=== PATIENT | female | born 1995 | race Caucasian/White ===

== ENCOUNTER 2018-03-03 14:09 | Inpatient (IN) ==
[2018-03-03] MEDS ORDERED: Sodium Chloride 0.9% 2 ML Flush PRN IV.FLUSH (16:49)
[2018-03-03] MEDS: Ketorolac Inj 30 MG/ML (IVP) Vial IV.PUSH PRN ×2 (17:19→23:07)
--- NOTE | 2018-03-03 19:08 | XR ---
EXAM DATE: 03/03/2018 7:00 PM EST AGE/SEX: 22 years / Female INDICATIONS: Follow up Post Op fracture. CLINICAL DATA: This is the patient's initial encounter. Patient reports that signs and symptoms have been present for 1 day and indicates a pain score of Nonresponsive. MEDICAL/SURGICAL HISTORY: None. None. COMPARISON: [facility] – [place], PELVIS AP 1V, 02/13/2018. [facility] [place], CT ABDOMEN & PELVIS W CONTRAST, 02/13/2018. . FINDINGS: The patient is in an external fixator. 2 screws are seen through the sacrum. The more superior screw extends through the right ilium and upper sacrum through the right sacroiliac joint. The more inferio r screw extends through the right sacroiliac joint, the mid sacrum and then the left sacroiliac joint on this AP projection. There is fracturing of the medial aspect of the left superior and inferior pu bic rami. There is a fre seen through the right femoral shaft. The hip joints appear aligned. CONCLUSION: Good placement of surgical hardware on this AP projection. Electronically signed by: Jordan Jarvis MD 03/03/2018 7:06 PM EST
--- NOTE | 2018-03-03 19:09 | XR ---
EXAM DATE: 03/03/2018 6:57 PM EST AGE/SEX: 22 years / Female INDICATIONS: Follow up fractures Post OP. CLINICAL DATA: This is the patient's initial encounter. Patient reports that signs and symptoms have been present for 1 day and indicates a pain score of 0/10. MEDICAL/SURGICAL HISTORY: None. None. COMPARISON: [facility] – [place], FEMUR RIGHT 1V, 02/13/2018. . FINDINGS: There is an intramedullary fer secured by 2 screws proximally and distally successfully reducing a mi d femoral shaft fracture. The hardware is well placed. The right hip and right knee joints are aligne d. Surgical hardware seen in the pelvis. CONCLUSION: Successful ORIF. Electronically signed by: Jordan Jarvis MD 03/03/2018 7:08 PM EST
--- NOTE | 2018-03-03 19:12 | P.CONOP ---
[facility] Orthopedics Consult Note - [facility] Consult date: 03/03/18 Chief complaint: Fracture Narrative: 22-year-old female who came in to [facility] as a trauma level 1 about 3 weeks ago. She was found to have multiple extremity fractures including pelvic fractures and a right humerus fracture. There was significant concern the patient had a dissecting ascending aortic aneurysm. The patient was transferred emergently to [facility] for possible surgical management of this. The patient tells me that when she arrived there they did not need to do surgery on her aorta. However she did have multiple orthopedic surgeries performed. She says that there was a fer placed into the right arm, there was fixation placed into her pelvis, and she said there is a fer placed into her right leg. She states that the fixation in the pelvis was going to require removal of part of this hardware in about a month or so. She states that she was allowed to do toe-touch weightbearing on the right lower extremity and weight-bear as tolerated on the left lower extremity and have no weightbearing to the right upper extremity. She denies any numbness or tingling of the extremities. She says that the surgeries went well and the swelling is come down and she did not have any infections. She was transferred back to [facility] for rehabilitation closer to home. She does complain of a little bit of left-sided rib pain. She says she was diagnosed with multiple rib fractures but she has no dyspnea, or shortness of breath or difficulty breathing. Review of Systems All other systems reviewed negative except as stated in [facility] PMFSH - History History Provided By: Patient, Ekg Tech / EMT - Medical / Surgical Hx Neg / Unobtainable Medical Problems Denied: Yes - Social History I have reviewed the patient's Social History: Yes Medications and Allergies Active Medications: Active Medications Enalaprilat (Vasotec Inj) 1.25 mg IV.PUSH Q8H PRN PRN Reason: SEE LABEL COMMENTS Enoxaparin Sodium (Lovenox Inj) 30 mg SQ Q12HR LATASHA Ketorolac Tromethamine (Toradol Inj) 15 mg IV.PUSH Q6H PRN PRN Reason: Break through pain Stop: 03/08/18 16:30 Last Admin: 03/03/18 17:19 Dose: 15 mg Oxycodone HCl (Roxicodone) 10 mg PO Q4H PRN PRN Reason: Pain > 3 Last Admin: 03/03/18 17:20 Dose: 10 mg Sodium Chloride (Ns Flush) 2 ml IV.FLUSH BID LATASHA Sodium Chloride (Ns Flush) 2 ml IV.FLUSH PRN PRN PRN Reason: FLUSH AFTER USING IV ACCESS Allergies Allergy/AdvReac Type Severity Reaction Status Date / Time No Allergy Information Allergy Unverified 02/13/18 01:16 Available Home Medications Medication Instructions Recorded Confirmed Type acetaminophen 650 mg PO Q4H PRN 03/03/18 03/03/18 History aspirin 1 tab PO DAILY 03/03/18 03/03/18 History cyclobenzaprine 10 mg PO TID 03/03/18 03/03/18 History diazepam 5 mg PO TID-QID PRN 03/03/18 03/03/18 History enoxaparin 30 mg SUBCUT Q12H 03/03/18 03/03/18 History gabapentin 600 mg PO TID 03/03/18 03/03/18 History hydromorphone [Dilaudid] 4 mg PO Q4-6H PRN 03/03/18 03/03/18 History ipratropium-albuterol 3 ml INHALATION Q4HR PRN 03/03/18 03/03/18 History magnesium L-lactate [Magtab] 168 mg PO DAILY 03/03/18 03/03/18 History metoprolol tartrate 25 mg PO BID 03/03/18 03/03/18 History polyethylene glycol 3350 [Miralax] 17 g PO DAILY 03/03/18 03/03/18 History sennosides-docusate sodium 1 tab PO BID 03/03/18 03/03/18 History [Senna-S] Exam Vital signs: Vital Signs 03/03/18 16:00 Temperature 98.8 F Pulse Rate 112 H Respiratory Rate 16 Blood Pressure 120/70 Pulse Oximetry 100 Intake & Output 03/03/18 03/03/18 03/04/18 06:59 18:59 06:59 Weight 74.1 kg Other: Date of Last Bowel Movement 03/03/18 # Bowel Movements 1 Weight On Admission 74.1 kg Narrative: GENERAL: The patient is awake, alert and oriented x3. The patient is no significant distress. PSYCHIATRIC: Normal affect, insight, and judgment. HEENT: Head is atraumatic. Oropharynx is moist. Extraocular muscles are intact. NECK: Non-tender and supple. LUNGS: No audible wheezing. He has normal inspiratory effort with no signs of dyspnea. She has minimal tenderness about the left chest wall there is some prominence about the ribs I do not appreciate any significant crepitus HEART: Regular rate and rhythm. ABDOMEN: Soft, nontender, and nondistended. BACK: No CVA tenderness. EXTREMITIES/SKIN/NEURO/VASCULAR: I evaluated wounds are all dressed about the right shoulder multiple wounds about the pelvis and also about the right leg. These all had dressings that have Tegaderm on top which are essentially a "no touch dressing" I do not see any erythema surrounding any of these and there is no significant drainage. The shoulder had a little bit of drainage which was dried, but this was fairly small. The examination of the right upper arm, right lower leg and pelvis shows that the compartments are all soft without a significant amount of swelling and only mild swelling about the thigh was noted. The right upper extremity has good active range of motion of the hand. On the bilateral lower extremities she can actively move the toes well. She has 2+ dorsalis pedis pulse bilaterally and she has a 2+ radial pulse on the right arm. She had normal sensation about the extremities. Results - Diagnostic results Imaging: The x-rays are not read by the radiologist yet. The right shoulder x-ray shows a highly comminuted proximal humerus fracture which has an ORIF with plates and screws overall good position. The right femur has a retrograde femoral fer with essentially a transverse fracture which is in anatomic position. The pelvis shows evidence of a fixator anteriorly in good position with significant comminution around the pubic rami on the left side and then there are transsacral/iliac screws on the right side. Overall alignment is appropriate for the pelvis. Assessment and Plan - Assessment and Plan 22-year-old female with multiple complex orthopedic injuries status post fixation at [facility]. 1right proximal humerus fracture status post ORIF. 2multiple pelvic fractures including right sacroiliac joint fixation along with anterior fixation. 3-right femur retrograde nailing of transverse femur fracture. This point patient seems to be stable as far as her fixation is concerned. She will continue with the prescribed precautions per the patient telling me what [facility] had told her. Specifically she will be toe-touch weightbearing on the right lower extremity. She can start active range of motion of the right knee. Given the significant comminution of the right shoulder would recommend avoiding significant motion of the right shoulder and she should be nonweightbearing to the right upper extremity. The patient can use her left leg for transfers. She is weightbearing as tolerated on the left lower extremity. The patient states that she needs to return back to [place] in a month to have the anterior fixator removed. - Attending Attestation Attending Attestation: A mid level provider in my office, nurse practitioner or PA, may see this patient on a follow up basis and continue to implement the plan including: starting or adjusting medications, injections of muscle, tendons, bursa or joints, cast application, orthotic or brace application, physical therapy, further radiographic studies including X-ray, MRI, CT, ultrasound or bone scan , vascular studies, neurological studies, or other specialist consultations, and proceeding with surgical management as appropriate.
--- NOTE | 2018-03-03 19:13 | XR ---
EXAM DATE: 03/03/2018 7:03 PM EST AGE/SEX: 22 years / Female INDICATIONS: Post Op follow up fracture. CLINICAL DATA: This is the patient's initial encounter. Patient reports that signs and symptoms have been present for 1 day and indicates a pain score of Nonresponsive. MEDICAL/SURGICAL HISTORY: None. None. [place] [facility] [place]. . FINDINGS: There is a comminuted humerus fracture status post plate and screw fixation. No dislocation. Fracture fragments are seen around the right humeral neck. CONCLUSION: Comminuted fracture proximal right humerus with plate and screw fixation. Electronically signed by: Josemanuel Ellington MD 03/03/2018 7:11 PM EST
[2018-03-03 19:50] LABS: Alkaline Phosphatase 294 U/L (45-117); Total Protein 6.9 g/dL (6.4-8.2)
[2018-03-03 21:11] LABS: Albumin 2.4 g/dL (3.4-5.0); Anion Gap 6 meq/L (5-15); Aspartate Aminotransferase 30 U/L (15-37); Blood Urea Nitrogen 12 mg/dL (7-18); Calcium 8.6 mg/dL (8.5-10.1); Carbon Dioxide 30.4 meq/L (21.0-32.0); Chloride 103 meq/L (98-107); Glomerular Filtration Rate Greater Than 89 mL/min (>89); Glucose,Random 81 mg/dL (74-106)
[2018-03-03 21:12] LABS: Alanine Aminotransferase 33 U/L (10-53); Sodium 139 meq/L (136-145)
[2018-03-03] MEDS: Enoxaparin Inj 30 MG/0.3 ML Syringe SQ SCH (21:33)
[2018-03-03] MEDS: Sodium Chloride 0.9% 2 ML Flush BID IV.FLUSH SCH (21:34)
[2018-03-03 23:19] LABS: Baso % (Auto) 0.3 % (0.0-2.0); Eos # (Auto) 0.1 th/mm3 (0.0-0.4); Eos % (Auto) 1.5 % (0.0-4.0); Hematocrit 27.3 % (35.0-46.0); Hemoglobin 9.5 gm/dL (11.6-15.3); Lymph % (Auto) 28.2 % (9.0-44.0); Mean Corpuscular HGB Conc 34.6 % (32.0-36.0); Mean Corpuscular Hemoglobin 32.6 pg (27.0-34.0); Mean Corpuscular Volume 94.3 fL (80.0-100.0); Mean Platelet Volume 7.4 fL (7.0-11.0); Mono # (Auto) 0.5 th/mm3 (0.0-0.9); Mono % (Auto) 6.7 % (0.0-8.0); Neut # (Auto) 4.5 th/mm3 (1.8-7.7); Neut % (Auto) 63.3 % (16.0-70.0); Platelet Count 454 th/mm3 (150-450); Red Cell Distribution Width 14.8 % (11.6-17.2); White Blood Count 7.1 th/mm3 (4.0-11.0)
--- NOTE | 2018-03-04 03:44 | XR ---
EXAM DATE: 03/04/2018 3:37 AM EST AGE/SEX: 22 years / Female INDICATIONS: EVARISTO. CLINICAL DATA: This is the patient's subsequent encounter. Patient reports that signs and symptoms h ave been present for 2 days and indicates a pain score of 4/10. MEDICAL/SURGICAL HISTORY: None. . ORIF Right humerus. COMPARISON: [facility] [place]ST 1V SINGLE AP, 02/13/2018. . FINDINGS: Single AP view of the chest. The lungs are clear. Cardiomediastinal silhouette within nor mal limits. No evidence of pleural effusion or pneumothorax. CONCLUSION: No acute cardiopulmonary disease identified. Electronically signed by: Stas Bassett MD 03/04/2018 3:43 AM EST
[2018-03-04] MEDS: Ketorolac Inj 30 MG/ML (IVP) Vial IV.PUSH PRN ×2 (05:13→20:31)
[2018-03-04] MEDS ORDERED: diazePAM 5 MG Tablet PO PRN (06:43)
[2018-03-04] MEDS ORDERED: Acetaminophen 325 MG Tablet PO PRN (06:43)
[2018-03-04] MEDS ORDERED: MAGNESIUM PO SCH (09:00)
[2018-03-04] MEDS ORDERED: LACTATE PO SCH (09:00)
[2018-03-04] MEDS: Metoprolol Tartrate 25 MG Tablet PO SCH ×2 (09:57→20:32)
[2018-03-04] MEDS: Gabapentin 300 MG Capsule PO SCH ×3 (09:57→17:41)
[2018-03-04] MEDS: Enoxaparin Inj 30 MG/0.3 ML Syringe SQ SCH ×2 (09:59→20:33)
[2018-03-04] MEDS: Sodium Chloride 0.9% 2 ML Flush BID IV.FLUSH SCH ×2 (10:03→20:33)
[2018-03-04] MEDS: Senna/Docusate Sodium 8.6/50 MG Tablet PO SCH ×2 (10:03→20:33)
[2018-03-04] MEDS: Polyethylene Glycol 3350 17 GM Packet PO SCH (10:03)
--- NOTE | 2018-03-04 14:14 | P.PN ---
Subjective Interval history: OOB in chair, complains of pelvic pain Reports she was transferring to chair well with PT at [facility] Physical Exam Vital signs: Vital Signs 03/03/18 16:00 03/03/18 20:00 03/04/18 00:00 Temperature 98.8 F 97.9 F 98.3 F Pulse Rate 112 H 101 H 114 H Respiratory Rate 16 17 17 Blood Pressure 120/70 119/75 126/71 Pulse Oximetry 100 97 96 03/04/18 01:30 03/04/18 08:00 03/04/18 12:00 Temperature 97.7 F 97.7 F Pulse Rate 89 93 H Respiratory Rate 16 16 18 Blood Pressure 125/79 117/79 Pulse Oximetry 99 98 Intake & Output 03/03/18 03/04/18 03/04/18 18:59 06:59 18:59 Intake Total 480 / 480 Balance 480 / 480 Weight 74.1 kg 74.1 kg Intake: Oral 480 / 480 Other: # Voids 2 Date of Last Bowel Movement 03/03/18 03/03/18 # Bowel Movements 1 1 Weight On Admission 74.1 kg Narrative: GENERAL: 22-year-old well-nourished, well developed female OOB in chair. SKIN: Warm and dry.. CARDIOVASCULAR: Regular rate and rhythm. RESPIRATORY: No accessory muscle use. Lungs clear to auscultation bilaterally. Right lateral rib pain with palpation. GASTROINTESTINAL: Abdomen soft, non-tender, nondistended. + BS. MUSCULOSKELETAL: Extremities without cyanosis, or edema. RUE Jorje wrap in place. Right thigh dry dressing intact. MAEW, + perfused NEUROLOGICAL: Awake and alert. Normal speech. Results - Labs CBC & Chem 7: 03/03/18 22:53 03/03/18 20:34 Laboratory Results - last 24 hr 03/03/18 03/03/18 20:34 22:53 WBC 7.1 RBC 2.90 L Hgb 9.5 L Hct 27.3 L MCV 94.3 MCH 32.6 MCHC 34.6 RDW 14.8 Plt Count 454 H D MPV 7.4 Neut % (Auto) 63.3 Lymph % (Auto) 28.2 Lyman % (Auto) 6.7 Eos % (Auto) 1.5 Baso % (Auto) 0.3 Neut # (Auto) 4.5 Lymph # (Auto) 2.0 Lyman # (Auto) 0.5 Eos # (Auto) 0.1 Baso # (Auto) 0.0 WBC Differential . Differential Comment Auto diff final Sodium 139 Potassium 4.0 Chloride 103 Carbon Dioxide 30.4 Anion Gap 6 BUN 12 Creatinine 0.53 Estimated GFR Greater than 89 Random Glucose 81 Calcium 8.6 Total Bilirubin 0.4 AST 30 ALT 33 Alkaline Phosphatase 294 H Total Protein 6.9 Albumin 2.4 L - Imaging Impressions Pelvis X-Ray 03/03/18 17:35 CONCLUSION: Good placement of surgical hardware on this AP projection. Femur X-Ray 03/03/18 17:36 CONCLUSION: Successful ORIF. Humerus X-Ray 03/03/18 17:36 CONCLUSION: Comminuted fracture proximal right humerus with plate and screw fixation. Chest X-Ray 03/04/18 06:00 CONCLUSION: No acute cardiopulmonary disease identified. Assessment and Plan - Plan [place]: Jumped from a 7th floor window landing on the grass. Had aortic arch tear and transferred to [facility] for treatment. INJURIES: Grade I aortic arch tear (non-op) RIGHT rib fxs (11, 12) RIGHT EVARISTO RIGHT pulmonary contusion RIGHT humerus fx RIGHT femur fx RIGHT pelvic fx extending through the sacrum Grade III liver lac RIGHT renal contusion Grade I aortic arch tear Supportive care Transferred to [facility] for continued management, decided on nonoperative management ASA 81 mg daily RIGHT rib fxs, RIGHT EVARISTO, RIGHT pulmonary contusion Supportive care Pulmonary toileting CXR shows no acute disease Pain control Bowel regimen OOB- PT and OT ordered RIGHT humerus fx, RIGHT femur fx, RIGHT pelvic fx extending through the sacrum Orthopedics consulted 02/16: IMN right femur fracture ([facility]) 02/20:Right sacroiliac joint fixation with anterior fixation ([facility]) 02/26: ORIF right proximal humerus fracture ([facility]) Pain control Bowel regimen OOB- PT and OT ordered NWB RUE, TTWB RLE, WBAT LLE for transfers only Lovenox 30 twice daily Rehab placement Grade III liver lac, RIGHT renal contusion Supportive care Trend hemoglobin Follow LFTs Monitor UOP ?Suicide attempt Psychiatry consulted Plan of care discussed with patient at bedside. Collaborating Trauma surgeon agrees with plan. Case management consulted to assist with discharge planning. - Attending Attestation multitrauma returned from [facility] overall stable will review chart consult [facility]
[2018-03-05] MEDS: Ketorolac Inj 30 MG/ML (IVP) Vial IV.PUSH PRN ×3 (02:05→17:20)
[2018-03-05] MEDS: Metoprolol Tartrate 25 MG Tablet PO SCH ×2 (09:16→21:29)
[2018-03-05] MEDS: Senna/Docusate Sodium 8.6/50 MG Tablet PO SCH ×2 (09:16→21:29)
[2018-03-05] MEDS: Enoxaparin Inj 30 MG/0.3 ML Syringe SQ SCH ×2 (09:16→21:31)
[2018-03-05] MEDS: Polyethylene Glycol 3350 17 GM Packet PO SCH (09:16)
[2018-03-05] MEDS: Gabapentin 300 MG Capsule PO SCH ×3 (09:17→17:21)
[2018-03-05] MEDS: Sodium Chloride 0.9% 2 ML Flush BID IV.FLUSH SCH ×2 (09:28→21:31)
--- NOTE | 2018-03-05 10:54 | P.PN ---
Subjective Interval history: Trauma PTD: 18. HD: 2 Patient OOB and sitting in a chair. Working with PT. Patient states, "I just got out of bed." "My pain is always a 8-9/10." Patient is worried about pain control. Discussed at length patient's pain regimen -both scheduled and PRN meds, how they are scheduled, and when to ask for them. Physical Exam Vital signs: Vital Signs 03/04/18 12:00 03/04/18 16:00 03/04/18 20:00 Temperature 97.7 F 98.3 F 98.8 F Pulse Rate 93 H 98 H 109 H Respiratory Rate 18 18 18 Blood Pressure 117/79 123/72 129/73 Pulse Oximetry 98 97 96 03/05/18 00:00 03/05/18 00:30 03/05/18 04:00 Temperature 98.2 F 98.2 F Pulse Rate 99 H 94 H Respiratory Rate 18 Blood Pressure 119/57 L 117/63 Pulse Oximetry 97 97 03/05/18 04:30 03/05/18 08:00 Temperature 97.8 F Pulse Rate 88 Respiratory Rate 17 17 Blood Pressure 128/73 Pulse Oximetry 98 Intake & Output 03/04/18 03/05/18 03/05/18 18:59 06:59 18:59 Intake Total 1000 / 1000 Balance 1000 / 1000 Weight 73.6 kg Intake: Oral 1000 / 1000 Other: # Voids 3 1 Date of Last Bowel Movement 03/03/18 03/03/18 03/03/18 Narrative: GENERAL: This is a 22-year-old [place] woman OOB and sitting in a recliner chair. No distress noted. SKIN: Warm and dry. HEAD: Atraumatic. Normocephalic. EYES: PERRLA ENT: No nasal bleeding or discharge. Mucous membranes pink and moist. NECK: Trachea midline. No JVD. CARDIOVASCULAR: Regular rate and rhythm. RESPIRATORY: No accessory muscle use. Lungs are clear to auscultation. Breath sounds equal bilaterally. No distress or dyspnea. GASTROINTESTINAL: BS + x 4 quads. Abdomen soft, non-tender, nondistended. MUSCULOSKELETAL: Extremities without cyanosis, or edema. Right upper extremity splint in place and wrapped in Jorje bandage. Sling in place. + peripheral pulses x 4 extremities. Warm with good capillary refill and sensation. MAEW. NEUROLOGICAL: Awake and alert. Normal speech and pattern. Results - Labs CBC & Chem 7: 03/03/18 22:53 03/03/18 20:34 Assessment and Plan - Plan [place]: This is a 22-year-old [place] woman who jumped from 1/7 floor window and landed on the grass. Patient was transferred to [facility] due to N aortic arch tear. She has since returned to [place] for continued care, and final rehab placement. INJURIES: Grade I aortic arch tear (non-op) RIGHT rib fxs (11, 12) RIGHT EVARISTO RIGHT pulmonary contusion RIGHT humerus fx RIGHT femur fx RIGHT pelvic fx extending through the sacrum Grade III liver lac RIGHT renal contusion Procedures: 02/16: IMN RIGHT femur fracture ([facility]) 02/20: RIGHT sacroiliac joint fixation with anterior fixation ([facility]) 02/26: ORIF RIGHT proximal humerus fracture ([facility]) Consults: Orthopedics. Psychiatry. [facility] nurse liaison. Case management. Diet: Regular diet. Tolerating po diet. Encourage good po intake with each meal. Pulmonary: Encourage good pulmonary toileting. IS at bedside and pt encouraged to use. Rationale for use explained to patient, and verbalized understanding. PAIN Management: Oxycodone 10mg q4h. Flexeril 10mg TID. Neurontin 600mg TID. Toradol 15mg q6h. Anxiety: Klonapin 0.5 mg q8h PRN (per Dr. Boykin recommendation) Activity: OOB. PT and OT ordered (NWB RUE, TTWB RLE, WBAT LLE for transfers only) GI prophylaxis: Not indicated at this time Bowel regimen: Tiffanie-colace. Miralax. LBM: 03/04. DVT prophylaxis: Mechanical VTE with SCDs. Chemical management with Lovenox 30 mg BID SQ and ASA 81 mg QD. DC Planning: Case management consulted for assistance with final discharge disposition. PT recommends rehab. Consult placed to [facility] nurse liaison. Emotional support provided to patient and family at bedside and plan of care discussed. Discussed with RN at bedside. Discussed pt condition and plan of care with collaborating trauma surgeon. Patient is hemodynamically stable and being managed on the med/surg floor. The trauma team will round each day, and evaluate plan of care on a daily basis. Grade I aortic arch tear Supportive care Transferred to [facility] for emergency care Nonoperative management at this time H&H stable Vital signs stable ASA 81 mg daily RIGHT rib fxs (11,12) RIGHT EVARISTO RIGHT pulmonary contusion O2 nasal cannula as needed Aggressive pulmonary toileting Chest x-ray as needed -chest x-ray stable Supportive care Pain management Encourage out of bed PT and OT ordered Bowel regimen Lovenox for DVT prophylaxis RIGHT humerus fx RIGHT femur fx RIGHT pelvic fx extending through the sacrum Orthopedics consulted and assisting in management and care 02/16: IMN RIGHT femur fracture ([facility]) 02/20: RIGHT sacroiliac joint fixation with anterior fixation ([facility]) 02/26: ORIF RIGHT proximal humerus fracture ([facility]) Supportive care Pain management Encourage out of bed PT and OT ordered NWB RUE -sling for comfort and support TTWB RLE WBAT LLE for transfers only Bowel regimen Lovenox for DVT prophylaxis Grade III liver laceration RIGHT renal contusion Supportive care Trend H&H H&H stable Transfuse when Hgb less than 7.0 No signs and symptoms of bleeding at this time Does not meet transfusion triggers Abdomen benign Liver enzymes stable Monitor UOP - WNL ? Suicide attempt Psychiatry consulted and assisting with management and care Klonopin 0.5 mg every 8 hours as needed is recommended by Dr. Boykin Does not require inpatient psychiatric stay Monitor closely - Attending Attestation Patient seen by the nurse practitioner care plan discussed Patient is overall stable continue pain control DVT prophylaxis discharge plan
--- NOTE | 2018-03-05 11:21 | P.CONPSY ---
Provisional Diagnosis Admission Date: March 03, 2018 15:00 History of Present Illness Primary Care Provider: UNKNOWN [facility] - History History Provided By: Patient - Medical / Surgical Hx Neg / Unobtainable Medical Problems Denied: Yes - Tobacco History Second Hand Smoke Exposure: No Smoking Status: Never smoker - Alcohol History How Often Do You Have a Drink Containing Alcohol: Monthly or less - Substance Use History Substance History: No History of Abuse - Immunization History Tetanus Immunization: Unable to Assess Hx Influenza Vaccine This Season: Yes Medications and Allergies Active Medications: Active Medications Acetaminophen (Tylenol) 650 mg PO Q4H PRN PRN Reason: FEVER, H/A Aspirin (Aspirin Chew) 81 mg PO DAILY [facility] Last Admin: 03/05/18 09:16 Dose: 81 mg Cyclobenzaprine HCl (Flexeril) 10 mg PO TID [facility] Last Admin: 03/05/18 09:17 Dose: 10 mg Diazepam (Valium) 5 mg PO Q12H PRN PRN Reason: Anxiety Enalaprilat (Vasotec Inj) 1.25 mg IV.PUSH Q8H PRN PRN Reason: SEE LABEL COMMENTS Enoxaparin Sodium (Lovenox Inj) 30 mg SQ Q12HR [facility] Last Admin: 03/05/18 09:16 Dose: 30 mg Gabapentin (Neurontin) 600 mg PO TID [facility] Last Admin: 03/05/18 09:17 Dose: 600 mg Ketorolac Tromethamine (Toradol Inj) 15 mg IV.PUSH Q6H PRN PRN Reason: Break through pain Stop: 03/08/18 16:30 Last Admin: 03/05/18 09:17 Dose: 15 mg Metoprolol Tartrate (Lopressor) 25 mg PO BID [facility] Last Admin: 03/05/18 09:16 Dose: 25 mg Oxycodone HCl (Roxicodone) 10 mg PO Q4H PRN PRN Reason: Pain > 3 Last Admin: 03/05/18 09:17 Dose: 10 mg Polyethylene Glycol (Miralax) 17 gm PO DAILY [facility] Last Admin: 03/05/18 09:16 Dose: 17 gm Senna/Docusate Sodium (Tiffanie-Colace) 1 tab PO BID [facility] Last Admin: 03/05/18 09:16 Dose: 1 tab Sodium Chloride (Ns Flush) 2 ml IV.FLUSH BID [facility] Last Admin: 03/05/18 09:28 Dose: 2 ml Sodium Chloride (Ns Flush) 2 ml IV.FLUSH PRN PRN PRN Reason: FLUSH AFTER USING IV ACCESS Allergies Allergy/AdvReac Type Severity Reaction Status Date / Time No Allergy Information Allergy Unverified 02/13/18 01:16 Available Home Medications Medication Instructions Recorded Confirmed Type acetaminophen 650 mg PO Q4H PRN 03/03/18 03/03/18 History aspirin 1 tab PO DAILY 03/03/18 03/03/18 History cyclobenzaprine 10 mg PO TID 03/03/18 03/03/18 History diazepam 5 mg PO TID-QID PRN 03/03/18 03/03/18 History enoxaparin 30 mg SUBCUT Q12H 03/03/18 03/03/18 History gabapentin 600 mg PO TID 03/03/18 03/03/18 History hydromorphone [Dilaudid] 4 mg PO Q4-6H PRN 03/03/18 03/03/18 History ipratropium-albuterol 3 ml INHALATION Q4HR PRN 03/03/18 03/03/18 History magnesium L-lactate [Magtab] 168 mg PO DAILY 03/03/18 03/03/18 History metoprolol tartrate 25 mg PO BID 03/03/18 03/03/18 History polyethylene glycol 3350 [Miralax] 17 g PO DAILY 03/03/18 03/03/18 History sennosides-docusate sodium 1 tab PO BID 03/03/18 03/03/18 History [Senna-S] Exam Vital signs: Vital Signs 03/04/18 12:00 03/04/18 16:00 03/04/18 20:00 Temperature 97.7 F 98.3 F 98.8 F Pulse Rate 93 H 98 H 109 H Respiratory Rate 18 18 18 Blood Pressure 117/79 123/72 129/73 Pulse Oximetry 98 97 96 03/05/18 00:00 03/05/18 00:30 03/05/18 04:00 Temperature 98.2 F 98.2 F Pulse Rate 99 H 94 H Respiratory Rate 18 18 18 Blood Pressure 119/57 L 117/63 Pulse Oximetry 97 97 03/05/18 04:30 03/05/18 08:00 Temperature 97.8 F Pulse Rate 88 Respiratory Rate 17 17 Blood Pressure 128/73 Pulse Oximetry 98 Intake & Output 03/04/18 03/05/18 03/05/18 18:59 06:59 18:59 Intake Total 1000 / 1000 Balance 1000 / 1000 Weight 73.6 kg Intake: Oral 1000 / 1000 Other: # Voids 3 1 Date of Last Bowel Movement 03/03/18 03/03/18 03/03/18 Assessment and Plan - Plan Plan: Estimated LOS: [] days
--- NOTE | 2018-03-05 11:53 | P.CONPSY ---
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 The patient was on the scene hypotensive, was called the level 1 trauma alert, and was brought in on spinal board with a C-collar in place. On arrival, the patient is normotensive, awake, alert, complaining about severe abdominal and pelvic pain. Posterior finding were ascending aortic dissection, vena cava laceration in the chest, multiple right liver contusions, right renal contusions, comminuted pelvic fracture with commination of superior inferior rami and comminuted sacral fracture with comminuted. In addition, the patient has intrapelvic hematoma on the right with no extravasation, right closed femur fracture, right 11th and 12th rib fracture. Based on all of the above, the patient is stabilized, given2 units of blood, started on labetalol drip to keep her systolic blood pressure less than 110. Pelvic binder is applied. Femur is immobilized. The patient has 2 large bore IVs placed. I purposely then put the central line and considering that this is where the incision will be in the chest and will not be in the middle of that and the patient will be transferred to [facility] for aortic arch surgery. Accepting physician is Dr. Rosas, trauma service. The patient will be transferred by air. Had aortic arch tear and transferred to [facility] for treatment now back to [place]. My psychiatric evaluation today the patient is calm, cooperative, she wishes to be interviewed in front of her boyfriend, Felix. She explains that she did not try to commit suicide by jumping of her balcony, she says that it was a complete accident. She says that she was drinking a little bit, it was dark, she miscalculated and then she fell. She says that she is very looking happy to be alive, she has been in pain and distress, but hopeful that she can get better, continue with her life. She denies depressive symptoms, denies anxiety, denies vera, denies psychosis, denies suicidal enemas ideation, she denies visual and auditory hallucinations. Her boyfriend is in a complete agreement with the idea that she did not try to commit suicide and she is not a danger to self and others. PPHx: a psychiatric history of depression with psychosis, 1 previous psychiatric hospitalization, but no suicidal attempts PMHx: medical history hypertension Family Hx: No family psychiatric history Substance Hx: Occasional use of alcohol and marijuana Social Hx: Patient was born and raised in the [place], she lives in [facility] with a roommate, she has a boyfriend, no kids, works as a marketing technologist in a [employer] baseball league. Review of Systems All other systems reviewed negative except as stated in HPI Psychiatric: Reports anxiety, Reports irritability PMFSH - History History Provided By: Patient - Medical / Surgical Hx Neg / Unobtainable Medical Problems Denied: Yes - Tobacco History Second Hand Smoke Exposure: No Smoking Status: Never smoker - Alcohol History How Often Do You Have a Drink Containing Alcohol: Monthly or less - Substance Use History Substance History: No History of Abuse - Immunization History Tetanus Immunization: Unable to Assess Hx Influenza Vaccine This Season: Yes Medications and Allergies Active Medications: Active Medications Acetaminophen (Tylenol) 650 mg PO Q4H PRN PRN Reason: FEVER, H/A Aspirin (Aspirin Chew) 81 mg PO DAILY [facility] Last Admin: 03/05/18 09:16 Dose: 81 mg Cyclobenzaprine HCl (Flexeril) 10 mg PO TID [facility] Last Admin: 03/05/18 09:17 Dose: 10 mg Diazepam (Valium) 5 mg PO Q12H PRN PRN Reason: Anxiety Enalaprilat (Vasotec Inj) 1.25 mg IV.PUSH Q8H PRN PRN Reason: SEE LABEL COMMENTS Enoxaparin Sodium (Lovenox Inj) 30 mg SQ Q12HR [facility] Last Admin: 03/05/18 09:16 Dose: 30 mg Gabapentin (Neurontin) 600 mg PO TID [facility] Last Admin: 03/05/18 09:17 Dose: 600 mg Ketorolac Tromethamine (Toradol Inj) 15 mg IV.PUSH Q6H PRN PRN Reason: Break through pain Stop: 03/08/18 16:30 Last Admin: 03/05/18 09:17 Dose: 15 mg Metoprolol Tartrate (Lopressor) 25 mg PO BID [facility] Last Admin: 03/05/18 09:16 Dose: 25 mg Oxycodone HCl (Roxicodone) 10 mg PO Q4H PRN PRN Reason: Pain > 3 Last Admin: 03/05/18 09:17 Dose: 10 mg Polyethylene Glycol (Miralax) 17 gm PO DAILY [facility] Last Admin: 03/05/18 09:16 Dose: 17 gm Senna/Docusate Sodium (Tiffanie-Colace) 1 tab PO BID [facility] Last Admin: 03/05/18 09:16 Dose: 1 tab Sodium Chloride (Ns Flush) 2 ml IV.FLUSH BID [facility] Last Admin: 03/05/18 09:28 Dose: 2 ml Sodium Chloride (Ns Flush) 2 ml IV.FLUSH PRN PRN PRN Reason: FLUSH AFTER USING IV ACCESS Allergies Allergy/AdvReac Type Severity Reaction Status Date / Time No Allergy Information Allergy Unverified 02/13/18 01:16 Available Home Medications Medication Instructions Recorded Confirmed Type acetaminophen 650 mg PO Q4H PRN 03/03/18 03/03/18 History aspirin 1 tab PO DAILY 03/03/18 03/03/18 History cyclobenzaprine 10 mg PO TID 03/03/18 03/03/18 History diazepam 5 mg PO TID-QID PRN 03/03/18 03/03/18 History enoxaparin 30 mg SUBCUT Q12H 03/03/18 03/03/18 History gabapentin 600 mg PO TID 03/03/18 03/03/18 History hydromorphone [Dilaudid] 4 mg PO Q4-6H PRN 03/03/18 03/03/18 History ipratropium-albuterol 3 ml INHALATION Q4HR PRN 03/03/18 03/03/18 History magnesium L-lactate [Magtab] 168 mg PO DAILY 03/03/18 03/03/18 History metoprolol tartrate 25 mg PO BID 03/03/18 03/03/18 History polyethylene glycol 3350 [Miralax] 17 g PO DAILY 03/03/18 03/03/18 History sennosides-docusate sodium 1 tab PO BID 03/03/18 03/03/18 History [Senna-S] Exam Vital signs: Vital Signs 03/04/18 12:00 03/04/18 16:00 03/04/18 20:00 Temperature 97.7 F 98.3 F 98.8 F Pulse Rate 93 H 98 H 109 H Respiratory Rate 18 18 18 Blood Pressure 117/79 123/72 129/73 Pulse Oximetry 98 97 96 03/05/18 00:00 03/05/18 00:30 03/05/18 04:00 Temperature 98.2 F 98.2 F Pulse Rate 99 H 94 H Respiratory Rate 18 18 18 Blood Pressure 119/57 L 117/63 Pulse Oximetry 97 97 03/05/18 04:30 03/05/18 08:00 Temperature 97.8 F Pulse Rate 88 Respiratory Rate 17 17 Blood Pressure 128/73 Pulse Oximetry 98 Intake & Output 03/04/18 03/05/18 03/05/18 18:59 06:59 18:59 Intake Total 1000 / 1000 Balance 1000 / 1000 Weight 73.6 kg Intake: Oral 1000 / 1000 Other: # Voids 3 1 Date of Last Bowel Movement 03/03/18 03/03/18 03/03/18 Narrative: Catatonia, no EPS, no tremors, no withdrawal symptoms - Constitutional mild distress, moderate distress - Routine HEENT Exam Head: Present: normocephalic, atraumatic Eye: Present: EOMI, PERRL ENT: Present: mucous membranes moist Mental Status Examination Appearance: Appropriate Consciousness: Alert Orientation: x4 Motor Activity: Normal gait Speech: Unremarkable Language: Adequate Fund of Knowledge: Adequate Attention and Concentration: Adequate Memory: Unremarkable Mood: Appropriate Affect: Appropriate Thought Process & Associations: Intact Thought Content: Appropriate Hallucination Type: None Delusion Type: None Suicidal Ideation: No Suicidal Plan: No Suicidal Intention: No Homicidal Ideation: No Homicidal Plan: No Homicidal Intention: No Insight: Adequate Judgment: Adequate Assessment and Plan - Plan Plan: On my psychiatric evaluation today the patient does not present any neuropsychiatric symptoms that requires an immediate psychiatric intervention. The patient does report distress, feeling a little bit anxious and sad in the context of length of hospitalization and pain, but she denies hopelessness, denies anhedonia, denies helplessness, denies negative thoughts, denies suicidal and was ideation, denies visual and auditory hallucinations. She does not meet criteria for involuntary psychiatric admission at this moment. I would recommend a low dose of clonazepam 0.5 mg 3 times daily to help the patient to cope with anxiety of the hospitalization and to sleep better, but no further psychiatric intervention. Recent fall from 9th floor of the building was accidental, this information is corroborated by her , no suicide attempt. Extensive support, motivational psychoeducation provided. Justification for Continued Inpatient Stay: No admission is indicated.
[2018-03-05] MEDS ORDERED: clonazePAM 0.5 MG Tablet PO PRN (12:22)
[2018-03-06 05:45] LABS: Hematocrit 29.4 % (35.0-46.0); Lymph % (Auto) 20.8 % (9.0-44.0); Mean Corpuscular HGB Conc 33.9 % (32.0-36.0); Mean Corpuscular Hemoglobin 32.6 pg (27.0-34.0); Mean Platelet Volume 7.9 fL (7.0-11.0); Neut % (Auto) 70.6 % (16.0-70.0); Platelet Count 398 th/mm3 (150-450); Red Blood Count 3.06 mil/mm3 (4.00-5.30)
[2018-03-06 05:46] LABS: Baso # (Auto) 0.1 th/mm3 (0.0-0.2); Baso % (Auto) 0.7 % (0.0-2.0); Eos # (Auto) 0.1 th/mm3 (0.0-0.4); Eos % (Auto) 1.6 % (0.0-4.0); Lymph # (Auto) 1.7 th/mm3 (1.0-4.8); Mono # (Auto) 0.5 th/mm3 (0.0-0.9); Mono % (Auto) 6.3 % (0.0-8.0); Neut # (Auto) 5.7 th/mm3 (1.8-7.7)
[2018-03-06 06:05] LABS: Anion Gap 8 meq/L (5-15); Blood Urea Nitrogen 15 mg/dL (7-18); Calcium 9.2 mg/dL (8.5-10.1); Carbon Dioxide 31.2 meq/L (21.0-32.0); Chloride 100 meq/L (98-107); Glomerular Filtration Rate Greater Than 89 mL/min (>89); Glucose,Random 91 mg/dL (74-106); Potassium 3.9 meq/L (3.5-5.1); Sodium 139 meq/L (136-145)
--- NOTE | 2018-03-06 08:19 | P.PN ---
Subjective Interval history: Trauma PTD: 19. HD: 3 Patient sitting up in bed. No distress noted. Visitor at bedside. No acute events overnight. Patient states, "I am doing a little bit better." Patient complains of headache at times. Physical Exam Vital signs: Vital Signs 03/05/18 12:00 03/05/18 16:00 03/05/18 20:00 Temperature 98 F 98.5 F 98.1 F Pulse Rate 71 95 H 96 H Respiratory Rate 17 16 16 Blood Pressure 134/81 119/64 127/60 Pulse Oximetry 98 97 97 03/05/18 23:35 03/06/18 04:15 Temperature 97.8 F 98.0 F Pulse Rate 92 H 90 Respiratory Rate 17 17 Blood Pressure 114/66 113/60 Pulse Oximetry 96 97 Intake & Output 03/05/18 03/06/18 03/06/18 18:59 06:59 18:59 Intake Total 900 / 900 Balance 900 / 900 Weight 74 kg Intake: Oral 900 / 900 Other: # Voids 2 3 Date of Last Bowel Movement 03/03/18 03/04/18 # Bowel Movements 2 Narrative: GENERAL: This is a 22-year-old [place] woman OOB and sitting in a recliner chair. No distress noted. SKIN: Warm and dry. All dressings to pelvic area CDI. HEAD: Atraumatic. Normocephalic. EYES: PERRLA ENT: No nasal bleeding or discharge. Mucous membranes pink and moist. NECK: Trachea midline. No JVD. CARDIOVASCULAR: Regular rate and rhythm. RESPIRATORY: No accessory muscle use. Lungs are clear to auscultation. Breath sounds equal bilaterally. No distress or dyspnea. GASTROINTESTINAL: BS + x 4 quads. Abdomen soft, non-tender, nondistended. MUSCULOSKELETAL: Extremities without cyanosis, or edema. Right upper extremity splint in place and wrapped in Jorje bandage. Sling in place. + peripheral pulses x 4 extremities. Warm with good capillary refill and sensation. MAEW. NEUROLOGICAL: Awake and alert. Normal speech and pattern. Results - Labs CBC & Chem 7: 03/06/18 05:04 03/06/18 05:04 Laboratory Results - last 24 hr 03/06/18 03/06/18 05:04 05:04 WBC 8.0 RBC 3.06 L Hgb 10.0 L Hct 29.4 L MCV 96.0 MCH 32.6 MCHC 33.9 RDW 15.0 Plt Count 398 MPV 7.9 Neut % (Auto) 70.6 H Lymph % (Auto) 20.8 [place] % (Auto) 6.3 Eos % (Auto) 1.6 Baso % (Auto) 0.7 Neut # (Auto) 5.7 Lymph # (Auto) 1.7 [place] # (Auto) 0.5 Eos # (Auto) 0.1 Baso # (Auto) 0.1 WBC Differential . Differential Comment Auto diff final Sodium 139 Potassium 3.9 Chloride 100 Carbon Dioxide 31.2 Anion Gap 8 BUN 15 Creatinine 0.63 Estimated GFR Greater than 89 Random Glucose 91 Calcium 9.2 Assessment and Plan - Plan [place] RESERVATION: This is a 22-year-old [place] woman who jumped from 1/7 floor window and landed on the grass. Patient was transferred to [facility] due to N aortic arch tear. She has since returned to [place] for continued care, and final rehab placement. INJURIES: Grade I aortic arch tear (non-op) RIGHT rib fxs (11, 12) RIGHT EVARISTO RIGHT pulmonary contusion RIGHT humerus fx RIGHT femur fx RIGHT pelvic fx extending through the sacrum Grade III liver lac RIGHT renal contusion Procedures: 02/16: IMN RIGHT femur fracture ([facility]) 02/20: RIGHT sacroiliac joint fixation with anterior fixation ([facility]) 02/26: ORIF RIGHT proximal humerus fracture ([facility]) Consults: Orthopedics. Psychiatry. [facility] nurse liaison. Case management. Diet: Regular diet. Tolerating po diet. Encourage good po intake with each meal. Pulmonary: Encourage good pulmonary toileting. IS at bedside and pt encouraged to use. Rationale for use explained to patient, and verbalized understanding. PAIN Management: Oxycodone 10mg q4h. Flexeril 10mg TID. Neurontin 600mg TID. Toradol 15mg q6h. Anxiety: Klonapin 0.5 mg q8h PRN (per Dr. Boykin recommendation) Activity: OOB. PT and OT ordered (NWB RUE, TTWB RLE, WBAT LLE for transfers only) GI prophylaxis: Not indicated at this time Bowel regimen: Tiffanie-colace. Miralax. LBM: 03/06. DVT prophylaxis: Mechanical VTE with SCDs. Chemical management with Lovenox 30 mg BID SQ and ASA 81 mg QD. DC Planning: Case management consulted for assistance with final discharge disposition. PT recommends rehab. Consult placed to [facility] nurse liaison. Patient is cleared from a trauma surgery standpoint to discharge to rehab once authorization and acceptance obtained. Emotional support provided to patient and family at bedside and plan of care discussed. Discussed with RN at bedside. Discussed pt condition and plan of care with collaborating trauma surgeon. Patient is hemodynamically stable and being managed on the med/surg floor. The trauma team will round each day, and evaluate plan of care on a daily basis. Grade I aortic arch tear Supportive care Transferred to [facility] for emergency care Nonoperative management at this time H&H stable H&H = Vital signs stable ASA 81 mg daily RIGHT rib fxs (11,12) RIGHT EVARISTO RIGHT pulmonary contusion O2 nasal cannula as needed Aggressive pulmonary toileting Chest x-ray as needed -chest x-ray stable Supportive care Pain management Encourage out of bed PT and OT ordered Bowel regimen Lovenox for DVT prophylaxis RIGHT humerus fx RIGHT femur fx RIGHT pelvic fx extending through the sacrum Orthopedics consulted and assisting in management and care 02/16: IMN RIGHT femur fracture ([facility]) 02/20: RIGHT sacroiliac joint fixation with anterior fixation ([facility]) 02/26: ORIF RIGHT proximal humerus fracture ([facility]) Supportive care Pain management Encourage out of bed PT and OT ordered NWB RUE -sling for comfort and support TTWB RLE WBAT LLE for transfers only Bowel regimen Lovenox for DVT prophylaxis Grade III liver laceration RIGHT renal contusion Supportive care Trend H&H H&H stable Transfuse when Hgb less than 7.0 No signs and symptoms of bleeding at this time Does not meet transfusion triggers Abdomen benign Liver enzymes stable Monitor UOP - WNL ? Suicide attempt Psychiatry consulted and assisting with management and care Klonopin 0.5 mg every 8 hours as needed is recommended by Dr. Boykin Does not require inpatient psychiatric stay Monitor closely - Attending Attestation Patient is overall stable she feels down more comfortable she is stable from trauma standpoint she will be discharged to rehab soon
[2018-03-06] MEDS: Gabapentin 300 MG Capsule PO SCH ×3 (09:51→17:52)
[2018-03-06] MEDS: Metoprolol Tartrate 25 MG Tablet PO SCH ×2 (09:51→20:16)
[2018-03-06] MEDS: Senna/Docusate Sodium 8.6/50 MG Tablet PO SCH ×2 (09:52→20:16)
[2018-03-06] MEDS: Enoxaparin Inj 30 MG/0.3 ML Syringe SQ SCH ×2 (09:52→20:16)
[2018-03-06] MEDS: Sodium Chloride 0.9% 2 ML Flush BID IV.FLUSH SCH ×2 (09:52→20:16)
[2018-03-06] MEDS: Polyethylene Glycol 3350 17 GM Packet PO SCH (09:52)
[2018-03-06] MEDS: Ketorolac Inj 30 MG/ML (IVP) Vial IV.PUSH PRN ×2 (13:39→20:15)
[2018-03-07] MEDS: Metoprolol Tartrate 25 MG Tablet PO SCH ×2 (08:52→21:00)
[2018-03-07] MEDS: Senna/Docusate Sodium 8.6/50 MG Tablet PO SCH ×2 (08:52→21:00)
[2018-03-07] MEDS: Gabapentin 300 MG Capsule PO SCH ×3 (08:52→17:07)
[2018-03-07] MEDS: Enoxaparin Inj 30 MG/0.3 ML Syringe SQ SCH ×2 (08:53→21:00)
[2018-03-07] MEDS: Polyethylene Glycol 3350 17 GM Packet PO SCH (08:54)
[2018-03-07] MEDS: Sodium Chloride 0.9% 2 ML Flush BID IV.FLUSH SCH ×2 (08:55→21:00)
--- NOTE | 2018-03-07 12:38 | P.PN ---
Subjective Interval history: Pain controlled Awaiting rehab placement Physical Exam Vital signs: Vital Signs 03/06/18 16:00 03/06/18 20:00 03/07/18 00:20 Temperature 97.3 F L 97.5 F L 98.4 F Pulse Rate 84 99 H 87 Respiratory Rate 18 17 17 Blood Pressure 109/60 108/62 104/58 L Pulse Oximetry 97 99 95 03/07/18 08:00 Temperature 98.5 F Pulse Rate 82 Respiratory Rate 20 Blood Pressure 113/68 Pulse Oximetry 95 Intake & Output 03/06/18 03/07/18 03/07/18 18:59 06:59 18:59 Intake Total 900 / 900 Balance 900 / 900 Weight 74.1 kg Intake: Oral 900 / 900 Other: # Voids 3 1 Date of Last Bowel Movement 03/04/18 03/06/18 03/06/18 Narrative: GENERAL: 22-year-old well-nourished, well developed female lying in bed no acute distress. SKIN: Warm and dry. CARDIOVASCULAR: Regular rate and rhythm. RESPIRATORY: No accessory muscle use. Lungs clear to auscultation bilaterally. GASTROINTESTINAL: Abdomen soft, non-tender, nondistended. + BS. MUSCULOSKELETAL: Extremities without cyanosis, or edema. RUE Jorje wrap with sling in place. Right thigh dry dressing intact. MAEW, + perfused NEUROLOGICAL: Awake and alert. Normal speech. Results - Labs CBC & Chem 7: 03/06/18 05:04 03/06/18 05:04 Assessment and Plan - Plan [place]: Jumped from a 7th floor window landing on the grass. Had aortic arch tear and transferred to [facility] for treatment. INJURIES: Grade I aortic arch tear (non-op) RIGHT rib fxs (11, 12) RIGHT EVARISTO RIGHT pulmonary contusion RIGHT humerus fx RIGHT femur fx RIGHT pelvic fx extending through the sacrum Grade III liver lac RIGHT renal contusion Grade I aortic arch tear Supportive care Transferred to [facility] for continued management, decided on nonoperative management ASA 81 mg daily RIGHT rib fxs, RIGHT EVARISTO, RIGHT pulmonary contusion Supportive care Pulmonary toileting CXR shows no acute disease Pain control Bowel regimen OOB- PT and OT ordered RIGHT humerus fx, RIGHT femur fx, RIGHT pelvic fx extending through the sacrum Orthopedics consulted 02/16: IMN right femur fracture ([facility]) 02/20:Right sacroiliac joint fixation with anterior fixation ([facility]) 02/26: ORIF right proximal humerus fracture ([facility]) Pain control Bowel regimen OOB- PT and OT ordered NWB RUE, TTWB RLE, WBAT LLE for transfers only Lovenox 30 BID Rehab placement Grade III liver lac, RIGHT renal contusion Supportive care Hgb stable LFTs WNL ?Suicide attempt Psychiatry consulted, cleared from psych point of view Recommends PRN Klonopin Plan of care discussed with patient at bedside. Collaborating Trauma surgeon agrees with plan. Case management consulted to assist with discharge planning. Clear for discharge when accepted at rehab.
[2018-03-08 09:21] VITALS: RESP 16
[2018-03-08] MEDS: Senna/Docusate Sodium 8.6/50 MG Tablet PO SCH ×2 (10:07→20:39)
[2018-03-08] MEDS: Metoprolol Tartrate 25 MG Tablet PO SCH ×2 (10:07→20:39)
[2018-03-08] MEDS: Gabapentin 300 MG Capsule PO SCH ×3 (10:07→17:45)
[2018-03-08] MEDS: Enoxaparin Inj 30 MG/0.3 ML Syringe SQ SCH ×2 (10:07→20:41)
[2018-03-08] MEDS: Sodium Chloride 0.9% 2 ML Flush BID IV.FLUSH SCH ×2 (10:08→20:20)
[2018-03-08] MEDS: Polyethylene Glycol 3350 17 GM Packet PO SCH (10:14)
--- NOTE | 2018-03-08 11:39 | P.PN ---
Subjective Interval history: No acute changes Awaiting rehab acceptance Physical Exam Vital signs: Vital Signs 03/07/18 12:00 03/07/18 16:00 03/07/18 20:00 Temperature 98.9 F 98.5 F 97.7 F Pulse Rate 101 H 99 H 92 H Respiratory Rate 20 20 18 Blood Pressure 106/71 130/58 L 115/55 L Pulse Oximetry 95 96 97 03/08/18 00:00 03/08/18 03:11 03/08/18 06:17 Temperature 98.9 F Pulse Rate 95 H Respiratory Rate 17 18 18 Blood Pressure 105/58 L Pulse Oximetry 97 03/08/18 08:00 Temperature 98.0 F Pulse Rate 79 Respiratory Rate 16 Blood Pressure 99/52 L Pulse Oximetry 97 Intake & Output 03/07/18 03/08/18 03/08/18 18:59 06:59 18:59 Intake Total 1200 / 1200 Output Total 2 / 2 Balance -2 / -2 1200 / 1200 Weight 71.3 kg Intake: Oral 1200 / 1200 Output: Urine 2 / 2 Other: # Voids 3 Date of Last Bowel Movement 03/06/18 03/06/18 03/06/18 Narrative: GENERAL: 22-year-old well-nourished, well developed female sitting up in bed eating breakfast. SKIN: Warm and dry. CARDIOVASCULAR: Regular rate and rhythm. RESPIRATORY: No accessory muscle use. Lungs clear to auscultation bilaterally. GASTROINTESTINAL: Abdomen soft, non-tender, nondistended. + BS. MUSCULOSKELETAL: Extremities without cyanosis, or edema. RUE Jorje wrap with sling in place. Right thigh dry dressing intact. MAEW, + perfused NEUROLOGICAL: Awake and alert. Normal speech. Results - Labs CBC & Chem 7: 03/06/18 05:04 03/06/18 05:04 Assessment and Plan - Plan [place]: Jumped from a 7th floor window landing on the grass. Had aortic arch tear and transferred to [facility] for treatment. INJURIES: Grade I aortic arch tear (non-op) RIGHT rib fxs (11, 12) RIGHT EVARISTO RIGHT pulmonary contusion RIGHT humerus fx RIGHT femur fx RIGHT pelvic fx extending through the sacrum Grade III liver lac RIGHT renal contusion Grade I aortic arch tear Supportive care Transferred to [facility] for continued management, decided on nonoperative management ASA 81 mg daily RIGHT rib fxs, RIGHT EVARISTO, RIGHT pulmonary contusion Supportive care Pulmonary toileting CXR shows no acute disease Pain control Bowel regimen OOB- PT and OT ordered RIGHT humerus fx, RIGHT femur fx, RIGHT pelvic fx extending through the sacrum Orthopedics consulted 02/16: IMN right femur fracture ([facility]) 02/20:Right sacroiliac joint fixation with anterior fixation ([facility]) 02/26: ORIF right proximal humerus fracture ([facility]) Pain control Bowel regimen OOB- PT and OT ordered NWB RUE, TTWB RLE, WBAT LLE for transfers only Lovenox 30 BID Rehab placement Grade III liver lac, RIGHT renal contusion Supportive care Hgb stable LFTs WNL ?Suicide attempt Psychiatry consulted, cleared from psych point of view Recommends PRN Klonopin Plan of care discussed with patient at bedside. Collaborating Trauma surgeon agrees with plan. Case management consulted to assist with discharge planning. Clear for discharge when accepted at rehab.
[2018-03-09] MEDS: Senna/Docusate Sodium 8.6/50 MG Tablet PO SCH (09:21)
[2018-03-09] MEDS: Metoprolol Tartrate 25 MG Tablet PO SCH (09:22)
[2018-03-09] MEDS: Gabapentin 300 MG Capsule PO SCH ×2 (09:22→12:34)
[2018-03-09] MEDS: Enoxaparin Inj 30 MG/0.3 ML Syringe SQ SCH (09:22)
[2018-03-09] MEDS: Polyethylene Glycol 3350 17 GM Packet PO SCH (09:22)
[2018-03-09] MEDS: Sodium Chloride 0.9% 2 ML Flush BID IV.FLUSH SCH (09:29)
[2018-03-09 13:23] VITALS: BP 104/71; PULSE 97; TEMP 97.3; O2SAT 97
--- NOTE | 2018-03-09 16:54 | P.DS ---
Date of admission: 03/03/18 15:00 Primary care physician: UNKNOWN Brief History from admission: S/P Fall DS: Diagnosis - Discharge Diagnosis (1) Fall from balcony Status: Acute (2) Rib fractures Status: Acute (3) Pelvic fracture Status: Acute (4) Liver laceration, grade III, with open wound into cavity Status: Acute (5) Injury of aorta Status: Acute (6) Hemothorax Status: Acute (7) Right humeral fracture Status: Acute (8) Right femoral fracture Status: Acute DS: Summary Hospital Course: [place]: Fell from a 7th floor window landing on the grass. Had aortic arch tear and transferred to [facility] for treatment. INJURIES: Grade I aortic arch tear (non-op) RIGHT rib fxs (11, 12) RIGHT EVARISTO RIGHT pulmonary contusion RIGHT humerus fx RIGHT femur fx RIGHT pelvic fx extending through the sacrum Grade III liver lac RIGHT renal contusion Grade I aortic arch tear Supportive care Transferred to [facility] for continued management, decided on nonoperative management ASA 81 mg daily RIGHT rib fxs, RIGHT EVARISTO, RIGHT pulmonary contusion Supportive care Pulmonary toileting CXR shows no acute disease Pain control Bowel regimen OOB- PT and OT ordered RIGHT humerus fx, RIGHT femur fx, RIGHT pelvic fx extending through the sacrum Orthopedics consulted 02/16: IMN right femur fracture ([facility]) 02/20:Right sacroiliac joint fixation with anterior fixation ([facility]) 02/26: ORIF right proximal humerus fracture ([facility]) Pain control Bowel regimen OOB- PT and OT ordered NWB RUE, TTWB RLE, WBAT LLE for transfers only Lovenox 30 BID Rehab placement Grade III liver lac, RIGHT renal contusion Supportive care Hgb stable LFTs WNL ?Suicide attempt Psychiatry consulted, cleared from psych point of view Recommends PRN Klonopin Plan of care discussed with patient at bedside. Collaborating Trauma surgeon agrees with plan. Case management consulted to assist with discharge planning. Clear for discharge to [place] rehab. - Time Spent with Patient Total time spent providing and/or coordinating discharge services: Greater than 30 minutes - Quality: VTE Deep Vein Thrombosis/Pulmonary Embolism Present on Admission: No Exam Vital signs: Vital Signs 03/08/18 20:00 03/09/18 00:00 03/09/18 07:30 Temperature 98.6 F 98.2 F 97.8 F Pulse Rate 97 H 92 H 86 Respiratory Rate 16 16 16 Blood Pressure 115/71 122/60 110/57 L Pulse Oximetry 95 98 96 03/09/18 11:50 Temperature 97.3 F L Pulse Rate 97 H Respiratory Rate 16 Blood Pressure 104/71 Pulse Oximetry 97 Intake & Output 03/08/18 03/09/18 03/09/18 18:59 06:59 18:59 Intake Total 1180 / 1180 Balance 1180 / 1180 Weight 71.3 kg Intake: Oral 1180 / 1180 Other: # Voids 3 Date of Last Bowel Movement 03/06/18 03/06/18 03/08/18 Narrative: GENERAL: 22-year-old well-nourished, well developed female OOB in chair. SKIN: Warm and dry. CARDIOVASCULAR: Regular rate and rhythm. RESPIRATORY: No accessory muscle use. Lungs clear to auscultation bilaterally. GASTROINTESTINAL: Abdomen soft, non-tender, nondistended. + BS. MUSCULOSKELETAL: Extremities without cyanosis, or edema. RUE dressing C/D/I with sling in place. Right thigh dry dressing intact. MAEW, + perfused NEUROLOGICAL: Awake and alert. Normal speech. Results Procedures completed during hospitalization: . - Impressions ITS Impressions Pelvis X-Ray 03/03/18 17:35 CONCLUSION: Good placement of surgical hardware on this AP projection. Femur X-Ray 03/03/18 17:36 CONCLUSION: Successful ORIF. Humerus X-Ray 03/03/18 17:36 CONCLUSION: Comminuted fracture proximal right humerus with plate and screw fixation. Chest X-Ray 03/04/18 06:00 CONCLUSION: No acute cardiopulmonary disease identified. Discharge Plan - Discharge Disposition Patient Disposition: 61 Rehab Inpatient - Discharge Condition Condition: Stable - Discharge Order Discharge Orders: Discharge Order (Routine); Ordered 03/06/18 Ordered By: Adriana Balderas - Discharge Details Anticipated Discharge Date: 03/06/18 Discharge Comment: Patient may DC to rehab once authorization and acceptance obtained. - Physicians Team Primary Care Provider: UNKNOWN, Attending Provider: Stephon Gunderson Other Providers: Jaime Jean-Baptiste MD ; Ruperto Boykin MD ; Jaime Torres MD ; Selwyn Puente MD ; [employer] ; Andrea Manriquez MD ; Adriana Balderas ARNP ; Stephon Gunderson MD ; Dilcia Guevara MD ; Ruth Horne ARNP ; Benito Mcqueen MD - Rxs /Orders / Referrals /Forms Prescriptions: New clonazepam [Klonopin] 0.5 mg Tablet 0.5 mg PO Q8HR PRN (Reason: Anxiety) RF: 0 oxycodone 10 mg Tablet 10 mg PO Q4H PRN (Reason: Pain > 3) RF: 0 Continue acetaminophen 325 mg Tablet 650 mg PO Q4H PRN (Reason: Pain) aspirin 81 mg Tablet,Chewable 1 tab PO DAILY cyclobenzaprine 10 mg Tablet 10 mg PO TID enoxaparin 30 mg/0.3 mL Syringe 30 mg SUBCUT Q12H gabapentin 300 mg Capsule 600 mg PO TID ipratropium-albuterol 0.5 mg-3 mg(2.5 mg base)/3 mL Solution For Nebulization 3 ml Inhalation Q4HR PRN (Reason: Shortness Of Breath Or Wheezing) magnesium L-lactate [Magtab] 84 mg Tablet Extended Release 168 mg PO DAILY metoprolol tartrate 25 mg Tablet 25 mg PO BID polyethylene glycol 3350 [Miralax] 17 gram Powder In Packet 17 g PO DAILY sennosides-docusate sodium [Senna-S] 8.6-50 mg Tablet 1 tab PO BID Discontinued diazepam 5 mg Tablet 5 mg PO TID-QID PRN (Reason: Anxiety) hydromorphone [Dilaudid] 4 mg Tablet 4 mg PO Q4-6H PRN (Reason: Pain) Referrals: [facility] [Other] - See Instructions (Follow-up in 2 weeks with orthopedist from [facility]) Jaime Jean-Baptiste MD [Physician] - See Instructions (f/u in 2 weeks (NWB RUE, TTWB RLE, WBAT LLE for transfers only) Benito Mcqueen MD [Physician] - See Instructions (f/u in 2 weeks in trauma clinic) UNKNOWN, [Primary Care Provider] - See Instructions (f/u in 1 week) Forms: School Release, Work Release/Restrictions - Discharge Instructions Patient Printed Instructions: ORIF of an Arm Fracture (DC), ORIF of a Leg Fracture (DC), Pelvic Fracture (DC), Rib Fracture (DC) Additional Instructions: NO DRIVING while taking narcotic pain meds NO DRIVING until cleared by orthopedics. (NWB RUE, TTWB RLE, WBAT LLE for transfers only Continue pulmonary toileting exercises even at home. - Post Discharge Care Plan Care Plan Goals: Your Health Problems: Goals to Promote Your Health: * To prevent worsening of your condition * To maintain your health at the optimal level Directions to Meet Your Goals: * Take your medications as prescribed * Follow your dietary instruction * Follow activity as directed * Keep your appointments as scheduled * Take your immunizations and boosters as scheduled * If your symptoms worsen call your PCP * If no PCP go to Urgent Care or Emergency Room Smoking is dangerous to your health. Avoid second hand smoke. You may reach the 24-hour crisis hotline for domestic abuse at .
== END 2018-03-09 15:24 ==
LOC: N06 15:00
PROVIDERS: ADMIT Surgery; ATTEND Surgery